=== PATIENT | female | born 1985 | race Caucasian/White ===

== ENCOUNTER 2016-11-25 19:45 | Outpatient (CLI) | payer OTHER ==
--- NOTE | 2016-11-28 19:05 | SLEEPCENT ---
DATE OF PROCEDURE: 11/25/2016 ORDERED BY: Catarina Angel NP Nocturnal polysomnography was performed due to concern for disrupted sleep in this patient with a history of excessive somnolence despite 8 hours of time in bed. Previous home sleep testing was inconclusive. During the initial test nocturnal polysomnography 7 hours and 27 minutes of data were reviewed. There were 389 minutes of sleep identified. Sleep latency was normal at 19 minutes. Rapid eye movement (REM) latency was delayed at 124 minutes. Sleep architecture was fairly well preserved. One period of wake after 4 a.m. There was a mild reduction in REM time. Overall sleep efficiency was 87.9%. The patient's EKG showed a sinus rhythm with an average heart rate of 60 beats per minute. EEG showed mild alpha intrusion into non-REM stages. No focal events were identified. There were only 20 respiratory events identified of 10 seconds in duration or greater for an apnea-hypopnea index within normal limits at 3.1. Snoring was noted over the course of the study and arousals from respiratory events when arousals from snoring were included occurred 1.5 times per hour with some limb activity but limb movement arousals occurred only 2.6 times per hour. Oxygen saturations remained 90% or better. Nocturnal polysomnography was followed by multiple sleep latency testing. Four nap opportunities were offered at 2 hour intervals. Sleep was appreciated on 4 out of 4 nap opportunities. There was no evidence of REM sleep identified. Mean sleep latency was 5.4 minutes. IMPRESSION: Normal nocturnal polysomnography with snoring with borderline to pathologic sleep latency on multiple sleep latency testing. No evidence of sleep onset REM periods was demonstrated.
[2016-12-02 07:12] LABS: SUMMARY SEE SEPARATE REPORT
== END 2016-11-26 15:00 | disposition home or self-care (01) ==
LOC: M SLEEP 19:45
PROVIDERS: ATTEND Nurse Practitioner Adult Health
DX: G47.30 Sleep apnea, unspecified (principal)

== ENCOUNTER → 2017-02-20 | Outpatient (REF) | payer OTHER | LOC: M SFHCCLAY 16:27 | PROVIDERS: ATTEND Family Medicine | DX: Z12.4 Encounter for screening for malignant neoplasm of cervix (principal) ==

== ENCOUNTER → 2018-01-23 | Outpatient (REF) | payer SELFPAY ==
[2018-01-23 20:25] LABS: HEMATOCRIT 38.2 % (36.0-47.0); HEMOGLOBIN 12.4 g/dl (12.0-15.5); MEAN CORPUSCULAR HEMOGLOBIN 28.5 pg (27.0-33.0); MEAN CORPUSCULAR HGB CONC 32.5 g/dl (32.0-36.5); MEAN CORPUSCULAR VOLUME 87.8 fl (80.0-96.0); PLATELET COUNT, AUTOMATED 260 10^3/uL (150-450); RED BLOOD COUNT 4.35 10^6/uL (4.00-5.40); WHITE BLOOD COUNT 7.2 10^3/uL (4.0-10.0)
[2018-01-23 20:39] LABS: TESTOSTERONE 33 NG/DL (14-76)
[2018-01-23 20:40] LABS: FOLLICLE STIMULATING HORMONE 2.9 mIU/mL; LUTEINIZING HORMONE 3.6 mIU/mL
[2018-01-23 20:45] LABS: FREE T4 0.95 NG/DL (0.76-1.46)
== END ==
LOC: M LAB REF 10:10
DX: R53.82 Chronic fatigue, unspecified (principal); N97.9 Female infertility, unspecified
CPT/HCPCS: 83001

== ENCOUNTER → 2018-04-13 | Outpatient (REF) | payer OTHER ==
[2018-04-13 20:00] LABS: PROGESTERONE 2.8 NG/ML
[2018-04-13 20:00] LABS: PROLACTIN 6.2 NG/ML
[2018-04-13 20:01] LABS: FOLLICLE STIMULATING HORMONE 3.6 mIU/mL; LUTEINIZING HORMONE 1.8 mIU/mL
== END ==
LOC: M LABDRWAD 19:15
DX: N93.8 Other specified abnormal uterine and vaginal bleeding (principal)

== ENCOUNTER → 2019-01-15 | Outpatient (REF) | payer OTHER ==
[2019-01-15 15:39] LABS: THYROID STIMULATING HORMONE 0.655 uIU/ML (0.358-3.740)
[2019-01-15 15:42] LABS: PROGESTERONE 23.53 NG/ML
[2019-01-15 15:43] LABS: ESTRADIOL 90.2 PG/ML
== END ==
LOC: M LABDRWAD 15:15
PROVIDERS: ATTEND Obstetrics & Gynecology Reproductive Endocrinology
DX: E28.9 Ovarian dysfunction, unspecified (principal)

== ENCOUNTER → 2019-01-22 | Outpatient (REF) | payer OTHER ==
[2019-01-22 12:52] LABS: HCG, SERUM QUANTITATIVE < 1.0 MIU/ML
[2019-01-22 13:01] LABS: PROGESTERONE 6.36 NG/ML
== END ==
LOC: M LABDRWAD 11:54
PROVIDERS: ATTEND Obstetrics & Gynecology Reproductive Endocrinology
DX: E28.9 Ovarian dysfunction, unspecified (principal)

== ENCOUNTER → 2019-02-11 | Outpatient (REF) | payer OTHER ==
[2019-02-11 11:32] LABS: THYROID STIMULATING HORMONE 1.43 uIU/ML (0.358-3.740)
[2019-02-11 11:34] LABS: ESTRADIOL 78.3 PG/ML; PROGESTERONE 22.89 NG/ML
== END ==
LOC: M LABDRWAD 10:22
PROVIDERS: ATTEND Obstetrics & Gynecology Reproductive Endocrinology
DX: E28.9 Ovarian dysfunction, unspecified (principal)

== ENCOUNTER → 2019-02-18 | Outpatient (REF) | payer OTHER ==
[2019-02-18 11:42] LABS: HCG, SERUM QUALITATIVE NEGATIVE (NEGATIVE)
[2019-02-18 11:44] LABS: PROGESTERONE 4.42 NG/ML
[2019-02-18 12:35] LABS: HCG, SERUM QUANTITATIVE < 1.0 MIU/ML
== END ==
LOC: M LAB REF 10:51
PROVIDERS: ATTEND Obstetrics & Gynecology Reproductive Endocrinology
DX: Z32.00 Encounter for pregnancy test, result unknown (principal)

== ENCOUNTER → 2019-03-10 | Outpatient (REF) | payer OTHER ==
[2019-03-10 10:45] LABS: THYROID STIMULATING HORMONE 1.31 uIU/ML (0.358-3.740)
[2019-03-10 11:23] LABS: PROGESTERONE 20.63 NG/ML
== END ==
LOC: M LABDRWAD 10:17
PROVIDERS: ATTEND Obstetrics & Gynecology Reproductive Endocrinology
DX: E28.39 Other primary ovarian failure (principal)

== ENCOUNTER → 2019-03-17 | Outpatient (REF) | payer OTHER ==
[2019-03-17 10:41] LABS: HCG, SERUM QUANTITATIVE < 1.0 MIU/ML
[2019-03-17 10:47] LABS: PROGESTERONE 7.53 NG/ML
== END ==
LOC: M LAB REF 09:32
PROVIDERS: ATTEND Obstetrics & Gynecology Reproductive Endocrinology
DX: E28.9 Ovarian dysfunction, unspecified (principal)

== ENCOUNTER → 2019-05-28 | Outpatient (REF) | payer OTHER ==
[2019-05-28 13:30] LABS: THYROID STIMULATING HORMONE 1.03 uIU/ML (0.358-3.740)
[2019-05-28 13:35] LABS: PROGESTERONE 25.19 NG/ML
[2019-05-28 13:36] LABS: ESTRADIOL 340.3 PG/ML
== END ==
LOC: M LABDRWAD 12:03
PROVIDERS: ATTEND Obstetrics & Gynecology Reproductive Endocrinology
DX: E28.9 Ovarian dysfunction, unspecified (principal)

== ENCOUNTER → 2019-05-28 | Outpatient (REF) | payer OTHER ==
[2019-05-28 12:57] LABS: HEMATOCRIT 42.4 % (36.0-47.0); HEMOGLOBIN 14.1 g/dl (12.0-15.5); MEAN CORPUSCULAR HEMOGLOBIN 31.9 pg (27.0-33.0); MEAN CORPUSCULAR HGB CONC 33.3 g/dl (32.0-36.5); MEAN CORPUSCULAR VOLUME 95.9 fl (80.0-96.0); PLATELET COUNT, AUTOMATED 251 10^3/uL (150-450); RED BLOOD COUNT 4.42 10^6/uL (4.00-5.40)
[2019-05-28 13:01] LABS: WHITE BLOOD COUNT 11.5 10^3/uL (4.0-10.0)
[2019-05-28 13:32] LABS: ALBUMIN 3.7 GM/DL (3.2-5.2); ALT/SGPT 29 U/L (12-78); BILIRUBIN,TOTAL 0.4 MG/DL (0.2-1.0); BLOOD UREA NITROGEN 13 MG/DL (7-18); CALCIUM LEVEL 9.1 MG/DL (8.5-10.1); CARBON DIOXIDE LEVEL 28 MEQ/L (21-32); CHLORIDE LEVEL 108 MEQ/L (98-107); CREATININE FOR GFR 0.82 MG/DL (0.55-1.30); FREE T4 1.01 NG/DL (0.76-1.46); GLOMERULAR FILTRATION RATE > 60.0 (>60); GLUCOSE, FASTING 77 MG/DL (70-100); LYMPHOCYTES 48 % (16-52); MONOCYTES 3 % (0-8); NEUTROPHILS 49 % (35-75); PLATELET ESTIMATE NORMAL (NORMAL); POTASSIUM SERUM 4.1 MEQ/L (3.5-5.1); SODIUM LEVEL 141 MEQ/L (136-145); TOTAL PROTEIN 7.3 GM/DL (6.4-8.2)
[2019-05-28 13:36] LABS: TOTAL 25(OH) VITAMIN D 71.3 NG/ML (30.0-100.0)
== END ==
LOC: M LABDRWAD 12:05
PROVIDERS: ATTEND Family Medicine
DX: Z13.29 Encounter for screening for other suspected endocrine disorder (principal); Z13.0 Encounter for screening for diseases of the blood and blood-forming organs and certain disorders involving the immune mechanism; E55.9 Vitamin D deficiency, unspecified

== ENCOUNTER → 2019-06-04 | Outpatient (REF) | payer OTHER ==
[2019-06-04 12:24] LABS: HCG, SERUM QUANTITATIVE < 1.0 MIU/ML
== END ==
LOC: M LABDRWAD 11:05
PROVIDERS: ATTEND Obstetrics & Gynecology Reproductive Endocrinology
DX: E28.9 Ovarian dysfunction, unspecified (principal)

== ENCOUNTER → 2019-08-25 | Outpatient (REF) | payer OTHER ==
[2019-08-25 12:18] LABS: THYROID STIMULATING HORMONE 0.048 uIU/ML (0.358-3.740)
[2019-08-25 12:20] LABS: PROGESTERONE 19.13 NG/ML
[2019-08-25 12:21] LABS: ESTRADIOL 78.8 PG/ML
== END ==
LOC: M LABDRWAD 11:36
PROVIDERS: ATTEND Obstetrics & Gynecology Reproductive Endocrinology
DX: E28.9 Ovarian dysfunction, unspecified (principal)

== ENCOUNTER → 2019-08-31 | Outpatient (REF) | payer OTHER ==
[2019-08-31 11:58] LABS: HCG, SERUM QUANTITATIVE < 1.0 MIU/ML
[2019-08-31 12:06] LABS: PROGESTERONE 37.26 NG/ML
== END ==
LOC: M LABDRWAD 10:22
PROVIDERS: ATTEND Obstetrics & Gynecology Reproductive Endocrinology
DX: E28.9 Ovarian dysfunction, unspecified (principal)

== ENCOUNTER → 2019-11-23 | Outpatient (REF) | payer OTHER ==
[2019-11-23 20:51] LABS: FREE T4 1.21 NG/DL (0.76-1.46); THYROID STIMULATING HORMONE 0.017 uIU/ML (0.358-3.740)
[2019-11-24 11:32] LABS: THYROID PEROXIDASE ANTIBODY < 28.0 U/ML (<60.0)
== END ==
LOC: M LABDRWAD 19:37
PROVIDERS: ATTEND Family Medicine
DX: R94.6 Abnormal results of thyroid function studies (principal); E03.9 Hypothyroidism, unspecified

== ENCOUNTER → 2019-12-14 | Outpatient (CLI) | payer OTHER ==
--- NOTE | 2019-12-15 15:49 | REP ---
Radionuclide thyroid scintigraphy with uptake: History: Abnormal results thyroid function tests. Technique: 386 microcuries of I 123 sodium iodide is ingested. 24 uptake values acquired along with functional thyroid images. Results: The thyroid uptake value is markedly decreased, 1.9% (25-35%). Functional images show homogeneous uptake. No cold or warm nodule is seen. Impression: Markedly decreased radioactive thyroid uptake value. No cold or warm nodule seen. Electronically Signed by Lew Gonzalez MD 12/15/2019 07:37 P
== END ==
LOC: M RAD 12:38
PROVIDERS: ATTEND Family Medicine
DX: R94.6 Abnormal results of thyroid function studies (principal)
CPT/HCPCS: 78012; A9516

== ENCOUNTER → 2020-03-23 | Outpatient (REF) | payer OTHER ==
[2020-03-23 13:30] LABS: ESTRADIOL 105.1 PG/ML; PROGESTERONE 25.49 NG/ML
== END ==
LOC: M LABDRWAD 12:34
PROVIDERS: ATTEND Obstetrics & Gynecology Reproductive Endocrinology
DX: E28.9 Ovarian dysfunction, unspecified (principal)

== ENCOUNTER → 2020-03-29 | Outpatient (REF) | payer OTHER ==
[2020-03-29 13:05] LABS: HCG, SERUM QUANTITATIVE < 1.0 MIU/ML
[2020-03-29 13:12] LABS: PROGESTERONE 24.06 NG/ML
== END ==
LOC: M LABDRWAD 12:25
PROVIDERS: ATTEND Obstetrics & Gynecology Reproductive Endocrinology
DX: Z32.00 Encounter for pregnancy test, result unknown (principal)

== ENCOUNTER → 2020-10-02 | Outpatient (REF) | payer OTHER, BC | LOC: M SFHCWAGY 11:26 | PROVIDERS: ATTEND Specialist | DX: Z12.4 Encounter for screening for malignant neoplasm of cervix (principal) ==

== ENCOUNTER → 2020-10-22 | Outpatient (CLI) | payer OTHER, BC ==
[~2020-10-22] MED LIST: CO Q10CA PO; D31000TA2 PO; OMEP-218; PREN200C PO; PRO1CAP PO
== END ==
LOC: M LABSMTC 11:27
PROVIDERS: ATTEND Anesthesiology
DX: Z01.812 Encounter for preprocedural laboratory examination (principal); Z20.828 Contact with and (suspected) exposure to other viral communicable diseases

== ENCOUNTER 2020-10-27 07:36 | Day surgery (SDC) | payer BC ==
[~2020-10-27] VITALS: Ht 170.2 cm; Wt 74.4 kg
[~2020-10-27 07:36] MED LIST changes: +LR 1,000 ML IV ONE
[2020-10-27] MEDS ORDERED: MIDAZOLAM INJ 2MG/2ML VIAL (J2250 PER 1MG) As Ordered ONE (07:58)
[2020-10-27] MEDS ORDERED: LIDOCAINE 2% 100MG/5ML SDV (FOR ANES.) As Ordered ONE (07:58)
[2020-10-27] MEDS ORDERED: ONDANSETRON 4MG/2ML VIAL As Ordered ONE (07:58)
[2020-10-27] MEDS ORDERED: propofoL 200 MG/20 ML VIAL As Ordered ONE (07:58)
[2020-10-27] MEDS ORDERED: KETOROLAC 60MG 2ML VIAL As Ordered ONE (07:58)
[2020-10-27] MEDS ORDERED: fentaNYL 100 MCG/2 ML INJECTION (J3010) As Ordered ONE (07:58)
[2020-10-27] MEDS ORDERED: dexameTHASONE 4 MG/ML 1ML VIAL (J1100 PER 1MG) As Ordered ONE (07:58)
[2020-10-27 08:16] LABS: HEMATOCRIT 38.3 % (36.0-47.0); HEMOGLOBIN 11.8 g/dl (12.0-15.5); MEAN CORPUSCULAR HEMOGLOBIN 27.7 pg (27.0-33.0); MEAN CORPUSCULAR HGB CONC 30.8 g/dl (32.0-36.5); MEAN CORPUSCULAR VOLUME 89.9 fl (80.0-96.0); PLATELET COUNT, AUTOMATED 279 10^3/uL (150-450); RED BLOOD COUNT 4.26 10^6/uL (4.00-5.40); WHITE BLOOD COUNT 5.9 10^3/uL (4.0-10.0)
--- NOTE | 2020-10-27 09:45 | ROOPDOC ---
[facility] Report Of Operation Report of Operation DATE OF PROCEDURE: 10/27/20 PREPROCEDURE DIAGNOSES: Abnormal uterine bleeding. POSTPROCEDURE DIAGNOSES: Same. PROCEDURE: Hysteroscopy, D&C. SURGEON: Monica Bernard MD ANESTHESIA: Gen. via LMA. ESTIMATED BLOOD LOSS: Approximately 10 mL. COMPLICATIONS: None. FINDINGS: Small polypoid fragment at anterior lower uterine segment. Otherwise, normal-appearing endometrial cavity. PROCEDURE NOTE: Patient taken to the operative room where LMA anesthesia was induced. She was prepped draped sterile fashion in dorsal lithotomy position. A Speculum was placed in the vagina. The anterior lip of the cervix was grasped with tenaculum. Cervix dilated with tapered dilators. A diagnostic hysteroscope using normal saline as the distention media was inserted through the internal os. Visualization the endometrial cavity revealed findings noted above. Sharp curettage was performed. Good hemostasis was noted. The hysteroscope was inserted again. The endometrial cavity appeared normal. All instruments removed. Sponges and instrument counts were correct. MONICA BERNARD MD Oct 27, 2020 09:45
[2020-10-27] MEDS ORDERED: fentaNYL 100 MCG/2 ML INJECTION (J3010) IV PRN (10:00)
[2020-10-27] MEDS ORDERED: ONDANSETRON 4MG/2ML VIAL IV PRN (10:00)
[2020-10-27] MEDS ORDERED: LR 1,000 ML IV SCH (10:00)
[2020-10-27] MEDS ORDERED: oxyCODONE 5MG TAB PO PRN (10:00)
[2020-10-27 10:15] VITALS: BP 127/82
== END 2020-10-27 10:52 | disposition home or self-care (01) ==
LOC: M SDC 07:36
PROVIDERS: ATTEND Specialist
DX: N93.9 Abnormal uterine and vaginal bleeding, unspecified (principal); K21.9 Gastro-esophageal reflux disease without esophagitis; F41.9 Anxiety disorder, unspecified; F32.9 Major depressive disorder, single episode, unspecified; Z79.899 Other long term (current) drug therapy; Z88.2 Allergy status to sulfonamides
CPT/HCPCS: 36415; 58558; 81025; 85027; 88305; J1100; J1885; J2250; J2405; J3010

== ENCOUNTER → 2021-03-12 | Outpatient (REF) | payer BC ==
[~2021-03-12] MED LIST changes: -LR 1,000 ML IV ONE
[2021-03-12 12:42] LABS: BASO # 0.1 10^3/uL (0.0-0.2); BASO % 1.1 % (0.0-1.0); EOS # 0.1 10^3/uL (0.0-0.5); EOS % 1.1 % (0.0-3.0); HEMATOCRIT 38.4 % (36.0-47.0); HEMOGLOBIN 11.9 g/dl (12.0-15.5); LYMPH # 2.5 10^3/uL (1.5-5.0); LYMPH % 44.7 % (24.0-44.0); MEAN CORPUSCULAR HEMOGLOBIN 26.4 pg (27.0-33.0); MEAN CORPUSCULAR VOLUME 85.3 fl (80.0-96.0); MONO # 0.6 10^3/uL (0.0-0.8); MONO % 9.9 % (2.0-8.0); NEUTROPHILS # 2.5 10^3/uL (1.5-8.5); PLATELET COUNT, AUTOMATED 301 10^3/uL (150-450); WHITE BLOOD COUNT 5.7 10^3/uL (4.0-10.0)
[2021-03-12 13:19] LABS: ALBUMIN 3.7 GM/DL (3.2-5.2); ALT/SGPT 23 U/L (12-78); BILIRUBIN,TOTAL 0.3 MG/DL (0.2-1.0); BLOOD UREA NITROGEN 11 MG/DL (7-18); CALCIUM LEVEL 9.6 MG/DL (8.5-10.1); CARBON DIOXIDE LEVEL 28 MEQ/L (21-32); CHLORIDE LEVEL 106 MEQ/L (98-107); CREATININE FOR GFR 0.72 MG/DL (0.55-1.30); FREE T4 0.92 NG/DL (0.76-1.46); GLOMERULAR FILTRATION RATE > 60.0 (>60); GLUCOSE, FASTING 90 MG/DL (70-100); POTASSIUM SERUM 4.5 MEQ/L (3.5-5.1); SODIUM LEVEL 139 MEQ/L (136-145); TOTAL PROTEIN 7.7 GM/DL (6.4-8.2)
== END ==
LOC: M LABDRWAD 12:07
PROVIDERS: ATTEND Family Medicine
DX: Z13.29 Encounter for screening for other suspected endocrine disorder (principal); Z13.0 Encounter for screening for diseases of the blood and blood-forming organs and certain disorders involving the immune mechanism

== ENCOUNTER → 2021-07-25 | Outpatient (REF) | payer BC | LOC: M LAB REF 17:10 | PROVIDERS: ATTEND Physician Assistant | DX: J01.90 Acute sinusitis, unspecified (principal) ==

== ENCOUNTER → 2021-09-21 | Outpatient (CLI) | payer BC ==
--- NOTE | 2021-09-21 10:49 | REPMRS ---
Patient History The patient states she had a clinical breast exam in August 2021. Patient is nulliparous. Family history of prostate cancer at age 75 in maternal grandfather, breast cancer in paternal grandmother, breast cancer in maternal aunt. Tomosynthesis is performed. Volpara breast density is d. Diagnostic Bilateral Mammo: September 21, 2021 - Exam #: [id number] Bilateral CC and MLO view(s) were taken. Technologist: Senait Norton, Technologist No prior studies available for comparison. FINDINGS: The breast tissue is extremely dense which could obscure a lesion on mammography. There is very dense fibroglandular tissue which is fairly symmetric. There is no dominant mass, areas of architectural distortion, or clustered microcalcification typical of malignancy. Assessment: BI-RADS/ACR category 1 mammogram. Negative Mammogram. Recommendation Routine screening mammogram in 1 year (for women over age 40). This mammogram was interpreted with the aid of an FDA-approved computer-aided dectection system. The Lifetime Breast Cancer Risk is estimated at 23.0%. Yearly supplemental screening MRI of the breasts is recommended for patients with an elevated lifetime risk of breast cancer of 20% or greater, in addition to annual screening mammography, staggered every 6 months. Electronically Signed By: Carlton Anguiano MD 09/21/21 [id number]
== END ==
LOC: M WHC 09:46
PROVIDERS: ATTEND Family Medicine
DX: N64.4 Mastodynia (principal); Z80.3 Family history of malignant neoplasm of breast
CPT/HCPCS: 77066; G0279

== ENCOUNTER → 2022-01-24 | Outpatient (CLI) | payer OTHER ==
[~2022-01-24] MED LIST changes: -D31000TA2 PO; +E-Z-GAS II EFFERVESCENT PACKET (SODIUM BICARB./CITRIC ACID/SIMETHICONE) As Ordered ONE; +E-Z-HD 98% w/w 340GM SUSP BTL As Ordered ONE; +E-Z-PAQUE 96% w/w SUSP 176GM BTL As Ordered ONE; +OMEP-173; -OMEP-218; +VITA100093 PO
== END ==
LOC: M RAD 08:38
PROVIDERS: ATTEND Nurse Practitioner Adult Health
DX: K44.0 Diaphragmatic hernia with obstruction, without gangrene (principal); R19.7 Diarrhea, unspecified; K21.9 Gastro-esophageal reflux disease without esophagitis; R82.5 Elevated urine levels of drugs, medicaments and biological substances

== ENCOUNTER → 2022-07-12 | Outpatient (CLI) | payer OTHER ==
[~2022-07-12] MED LIST changes: -E-Z-GAS II EFFERVESCENT PACKET (SODIUM BICARB./CITRIC ACID/SIMETHICONE) As Ordered ONE; -E-Z-HD 98% w/w 340GM SUSP BTL As Ordered ONE; -E-Z-PAQUE 96% w/w SUSP 176GM BTL As Ordered ONE; +PROHANCE 279.3MG/ML 15ML VIAL ONE
== END ==
LOC: M PLAIMG 07:46
PROVIDERS: ATTEND Nurse Practitioner Adult Health
DX: R92.8 Other abnormal and inconclusive findings on diagnostic imaging of breast (principal); Z15.01 Genetic susceptibility to malignant neoplasm of breast
CPT/HCPCS: A9576; C8908

== ENCOUNTER → 2023-08-25 | Outpatient (CLI) | payer OTHER ==
[~2023-08-25] MED LIST changes: -PROHANCE 279.3MG/ML 15ML VIAL ONE
[2023-08-25 16:22] LABS: BASO # 0.1 10^3/uL (0.0-0.2); BASO % 0.6 % (0.0-1.0); EOS # 0.1 10^3/uL (0.0-0.5); EOS % 1.3 % (0.0-3.0); HEMATOCRIT 38.3 % (36.0-47.0); HEMOGLOBIN 12.4 g/dl (12.0-15.5); LYMPH # 2.7 10^3/uL (1.5-5.0); LYMPH % 34.8 % (24.0-44.0); MEAN CORPUSCULAR HEMOGLOBIN 29.9 pg (27.0-33.0); MEAN CORPUSCULAR HGB CONC 32.4 g/dl (32.0-36.5); MEAN CORPUSCULAR VOLUME 92.3 fl (80.0-96.0); MONO # 0.6 10^3/uL (0.0-0.8); MONO % 7.8 % (2.0-8.0); NEUTROPHILS # 4.3 10^3/uL (1.5-8.5); NEUTROPHILS % 55.1 % (36.0-66.0); PLATELET COUNT, AUTOMATED 284 10^3/uL (150-450); RED BLOOD COUNT 4.15 10^6/uL (4.00-5.40); WHITE BLOOD COUNT 7.7 10^3/uL (4.0-10.0)
[2023-08-25 16:29] LABS: ALBUMIN 3.5 G/DL (3.2-5.2); ALKALINE PHOSPHATASE 80 U/L (46-116); ALT/SGPT 22 U/L (7.0-40); AST/SGOT 34 U/L (<34); BILIRUBIN,TOTAL 0.7 MG/DL (0.3-1.2); BLOOD UREA NITROGEN 12 MG/DL (9-23); CALCIUM LEVEL 8.5 MG/DL (8.5-10.1); CARBON DIOXIDE LEVEL 27 MMOL/L (20-31); CHLORIDE LEVEL 106 MMOL/L (98-107); CHOLESTEROL LEVEL 219 MG/DL (<200); CHOLESTEROL RISK RATIO 3.88 (<5); CREATININE FOR GFR 0.68 MG/DL (0.55-1.30); GLOMERULAR FILTRATION RATE > 60.0 (>58); GLUCOSE, FASTING 86 MG/DL (60-100); HDL CHOLESTEROL 56.3 MG/DL (>40); LDL CHOLESTEROL 146.9 MG/DL (<100); NON-HDL-C 162.7 MG/DL; POTASSIUM SERUM 3.9 MMOL/L (3.5-5.1); SODIUM LEVEL 140 MMOL/L (136-145); TOTAL PROTEIN 7.2 G/DL (5.7-8.2); TRIGLYCERIDES LEVEL 79 MG/DL (<150)
[2023-08-25 16:30] LABS: FREE T4 1.06 NG/DL (0.89-1.76)
[2023-08-25 16:31] LABS: THYROID STIMULATING HORMONE 1.344 uIU/ML (0.55-4.78)
== END ==
LOC: M PLALAB 12:32
PROVIDERS: ATTEND Nurse Practitioner Adult Health
DX: Z13.220 Encounter for screening for lipoid disorders (principal); Z13.29 Encounter for screening for other suspected endocrine disorder; Z13.0 Encounter for screening for diseases of the blood and blood-forming organs and certain disorders involving the immune mechanism

== ENCOUNTER → 2023-08-25 | Outpatient (CLI) | payer OTHER | LOC: M PLAIMG 12:35 | PROVIDERS: ATTEND Physician Assistant | DX: J20.9 Acute bronchitis, unspecified (principal) ==

== ENCOUNTER → 2023-12-29 | Outpatient (CLI) | payer OTHER ==
[2023-12-29 14:16] LABS: IRON (FE) 48 UG/DL (50-170); PERCENT SATURATION 14.2 % (13.2-45.0); TOTAL IRON BINDING CAPACITY 339 UG/DL (250-425)
[2023-12-29 14:17] LABS: ALBUMIN 3.7 G/DL (3.2-5.2); ALKALINE PHOSPHATASE 78 U/L (46-116); ALT/SGPT 23 U/L (7.0-40); AST/SGOT 34 U/L (<34); BILIRUBIN,TOTAL 0.4 MG/DL (0.3-1.2); BLOOD UREA NITROGEN 16 MG/DL (9-23); CALCIUM LEVEL 8.9 MG/DL (8.5-10.1); CARBON DIOXIDE LEVEL 28 MMOL/L (20-31); CHLORIDE LEVEL 105 MMOL/L (98-107); CHOLESTEROL LEVEL 197 MG/DL (<200); CHOLESTEROL RISK RATIO 3.77 (<5); CREATININE FOR GFR 0.68 MG/DL (0.55-1.30); FREE T4 1.04 NG/DL (0.89-1.76); GLOMERULAR FILTRATION RATE > 60.0 (>58); GLUCOSE, FASTING 98 MG/DL (60-100); HDL CHOLESTEROL 52.2 MG/DL (>40); LDL CHOLESTEROL 126.8 MG/DL (<100); NON-HDL-C 144.8 MG/DL; POTASSIUM SERUM 4.4 MMOL/L (3.5-5.1); SODIUM LEVEL 138 MMOL/L (136-145); THYROID PEROXIDASE ANTIBODY 40 U/ML (<60.0); THYROID STIMULATING HORMONE 1.084 uIU/ML (0.55-4.78); TOTAL PROTEIN 7.2 G/DL (5.7-8.2); TRIGLYCERIDES LEVEL 90 MG/DL (<150)
[2023-12-29 14:18] LABS: VITAMIN B12 LEVEL 1017 PG/ML (211-911)
[2023-12-29 14:22] LABS: FOLATE 10.5 NG/ML (>5.4)
[2023-12-29 14:27] LABS: BASO # 0.1 10^3/uL (0.0-0.2); BASO % 0.9 % (0.0-1.0); EOS # 0.1 10^3/uL (0.0-0.5); EOS % 1.2 % (0.0-3.0); HEMATOCRIT 40.1 % (36.0-47.0); HEMOGLOBIN 13.1 g/dl (12.0-15.5); LYMPH # 2.4 10^3/uL (1.5-5.0); MEAN CORPUSCULAR HEMOGLOBIN 30.5 pg (27.0-33.0); MEAN CORPUSCULAR HGB CONC 32.7 g/dl (32.0-36.5); MEAN CORPUSCULAR VOLUME 93.3 fl (80.0-96.0); MONO # 0.5 10^3/uL (0.0-0.8); MONO % 6.3 % (2.0-8.0); NEUTROPHILS % 62.2 % (36.0-66.0); PLATELET COUNT, AUTOMATED 305 10^3/uL (150-450); WHITE BLOOD COUNT 8.1 10^3/uL (4.0-10.0)
[2023-12-31 04:44] LABS: IgG P18 AB Absent (.); IgG P23 AB Absent (.); IgG P28 AB Absent (.); IgG P30 AB Absent (.); IgG P39 AB Absent (.); IgG P41 AB Present (.); IgG P45 AB Absent (.); IgG P66 AB Absent (.); IgG P93 AB Absent (.); IgM P23 AB Absent (.); IgM P39 AB Absent (.); IgM P41 AB Absent (.); LYME IgG WB INTERPRETATION Negative (.); LYME IgM WB INTERPRETATION Negative (.)
== END ==
LOC: M PLALAB 11:07
PROVIDERS: ATTEND Family Medicine
DX: R53.83 Other fatigue (principal); Z13.0 Encounter for screening for diseases of the blood and blood-forming organs and certain disorders involving the immune mechanism; Z13.29 Encounter for screening for other suspected endocrine disorder; Z13.220 Encounter for screening for lipoid disorders

== ENCOUNTER → 2023-12-29 | Outpatient (CLI) | payer OTHER | LOC: M WHC 09:52 | PROVIDERS: ATTEND Family Medicine | DX: Z12.31 Encounter for screening mammogram for malignant neoplasm of breast (principal); N63.15 Unspecified lump in the right breast, overlapping quadrants ==

== ENCOUNTER → 2024-01-14 | Outpatient (CLI) | payer OTHER | LOC: M WHC 09:13 | PROVIDERS: ATTEND Family Medicine | DX: R92.8 Other abnormal and inconclusive findings on diagnostic imaging of breast (principal) | CPT/HCPCS: 76642; 77065; G0279 ==

== ENCOUNTER → 2025-03-07 | Outpatient (CLI) | payer OTHER ==
[2025-03-07 17:45] LABS: FREE T4 1.2 NG/DL (0.89-1.76); PERCENT SATURATION 22.3 % (13.2-45.0); THYROID STIMULATING HORMONE 1.123 uIU/ML (0.55-4.78)
[2025-03-09 15:17] LABS: ANA SCREEN, IFA NEGATIVE (NEGATIVE)
== END ==
LOC: M PLALAB 15:27
PROVIDERS: ATTEND Dermatology
DX: L65.0 Telogen effluvium (principal); L70.0 Acne vulgaris; B07.8 Other viral warts; L82.1 Other seborrheic keratosis; D22.5 Melanocytic nevi of trunk

== ENCOUNTER → 2025-05-13 | Outpatient (CLI) | payer OTHER ==
[2025-05-13 13:31] LABS: BASO # 0.1 10^3/uL (0.0-0.2); BASO % 1.0 % (0.0-1.0); EOS # 0.1 10^3/uL (0.0-0.5); EOS % 1.2 % (0.0-3.0); LYMPH # 1.9 10^3/uL (1.5-5.0); LYMPH % 32.1 % (24.0-44.0); MONO # 0.5 10^3/uL (0.0-0.8); MONO % 8.8 % (2.0-8.0); NEUTROPHILS # 3.3 10^3/uL (1.5-8.5); NEUTROPHILS % 56.7 % (36.0-66.0); PLATELET COUNT, AUTOMATED 271 10^3/uL (150-450)
[2025-05-13 13:58] LABS: CHOLESTEROL LEVEL 234.0 MG/DL (<200); CHOLESTEROL RISK RATIO 3.2 (<5); LDL CHOLESTEROL 152.5 MG/DL (<100); NON-HDL-C 161.1 MG/DL; TRIGLYCERIDES LEVEL 43.0 MG/DL (<150)
[2025-05-13 13:59] LABS: IRON (FE) 129.0 UG/DL (50-170); PERCENT SATURATION 36.5 % (13.2-45.0)
[2025-05-13 14:00] LABS: FREE T4 1.34 NG/DL (0.89-1.76); TOTAL 25(OH) VITAMIN D 80.7 NG/ML (20.0-100.0); VITAMIN B12 LEVEL 630.0 PG/ML (211-911)
== END ==
LOC: M PLALAB 10:30
PROVIDERS: ATTEND Family Medicine
DX: E61.1 Iron deficiency (principal); E78.00 Pure hypercholesterolemia, unspecified; Z13.29 Encounter for screening for other suspected endocrine disorder; Z13.0 Encounter for screening for diseases of the blood and blood-forming organs and certain disorders involving the immune mechanism

== ENCOUNTER → 2025-08-03 | Outpatient (REF) | payer OTHER ==
[2025-08-06 12:18] LABS: HPV APTIMA Not Detected (Not Detected)
== END ==
LOC: M SFHCWAGY 16:08
PROVIDERS: ATTEND Physician Assistant
DX: Z12.4 Encounter for screening for malignant neoplasm of cervix (principal)
CPT/HCPCS: 87624; G0123

== ENCOUNTER → 2025-08-03 | Outpatient (CLI) | payer OTHER | LOC: M WHC 15:55 | PROVIDERS: ATTEND Physician Assistant | DX: N63.11 Unspecified lump in the right breast, upper outer quadrant (principal); Z53.9 Procedure and treatment not carried out, unspecified reason ==

== ENCOUNTER → 2025-08-04 | Outpatient (CLI) | payer OTHER | LOC: M WHC 08:56 | PROVIDERS: ATTEND Physician Assistant | DX: N63.11 Unspecified lump in the right breast, upper outer quadrant (principal); Z53.9 Procedure and treatment not carried out, unspecified reason ==

== ENCOUNTER → 2025-09-14 | Outpatient (REF) | payer OTHER ==
[2025-09-14 14:27] LABS: PROLACTIN 17.13 NG/ML
[2025-09-14 14:29] LABS: ESTRADIOL 92.8 PG/ML; LUTEINIZING HORMONE 19.2 mIU/ML
== END ==
LOC: M PLALAB 12:41 → M SFHCWAGY 12:41
PROVIDERS: ATTEND Physician Assistant
DX: N95.9 Unspecified menopausal and perimenopausal disorder (principal)